=== PATIENT | male | born 1990 | race Caucasian/White ===

== ENCOUNTER 2019-09-25 23:14 | Emergency (ER) | payer SELFPAY ==
[~2019-09-25] VITALS: Ht 185.4 cm; Wt 110.7 kg
[2019-09-25] MEDS ORDERED: OLANZAPINE 10 MG VIAL IM ONE (23:48)
[2019-09-26] MEDS ORDERED: OLANZAPINE 10 MG VIAL IM ONE
--- NOTE | 2019-09-26 00:20 | NUR ---
[facility]IB EMS AND [employer] C/O AGITATION AND COMBATIVE PER EMS REPORT. VERSED 5MG IM, TASER PRONG ON THE LEFT HAND AND LUQ, PT RECEIVED CALM AND SEDATED TO ER BED 12 VSS
--- NOTE | 2019-09-26 02:26 | NUR ---
PT REMAINS ASLEEP, EASILY AROUSABLE, NO ACUTE DISTRESS NOTED, RESP EVEN AND UNLABORED. WHEN AROUSED PT VERY RESTLESS, THRASHING AROUND. PT REMAINS ON CARDIAC MONITORING, CONTINUOUS POX. CALL LIGHT WITHIN REACH. WILL COTINUE TO MONITOR PT CLOSELY.
[2019-09-26] MEDS ORDERED: HALOPERIDOL LACTATE INJ 5 MG/ML VIAL ONE ×2 (02:59→06:44)
[2019-09-26] MEDS ORDERED: HALOPERIDOL LACTATE INJ 5 MG/ML VIAL IM ONE ×2 (03:00→07:00)
--- NOTE | 2019-09-26 04:19 | NUR ---
PT SLEEPING IN [facility] NO SIGNS OF DISTRESS NOTED. WILL CONT TO MONITOR PT.
[2019-09-26 05:55] LABS: BASOPHILS # (AUTO) 0.1 /CMM (0.0-0.2); BASOPHILS % (AUTO) 0.5 % (0.0-2.0); EOSINOPHILS % (AUTO) 0.5 % (0.0-6.0); HEMATOCRIT 40 % (39-51); HEMOGLOBIN 13.4 g/dL (13.5-17.5); LYMPHOCYTES # (AUTO) 2.4 /CMM (0.8-4.8); MEAN CORPUSCULAR HGB CONC 34 g/dl (31.0-36.0); MEAN CORPUSCULAR VOLUME 89 fL (80-96); MONOCYTES # (AUTO) 0.8 /CMM (0.1-1.30); MONOCYTES % (AUTO) 7.4 % (2.0-12.0); NEUTROPHILS # (AUTO) 7.3 /CMM (1.8-8.9); NEUTROPHILS % (AUTO) 68.6 % (43.0-81.0); PLATELET COUNT (AUTO) 206 /CMM (150-450); RED BLOOD CELL COUNT(AUTO) 4.48 MIL/uL (4.5-6.0); WHITE BLOOD COUNT (AUTO) 10.6 K/uL (4.3-11.0)
[2019-09-26 06:02] LABS: CALCIUM, SERUM 8.4 mg/dL (8.5-10.1); CARBON DIOXIDE 29 mmol/L (21-32); CHLORIDE 106 mmol/L (98-107); CREATININE 0.8 mg/dL (0.6-1.3); GLUCOSE 106 mg/dL (74-106); POTASSIUM 3.8 mmol/L (3.5-5.1); SODIUM SERUM 143 mmol/L (136-145); UREA NITROGEN, BLOOD 16 mg/dL (7-18)
[2019-09-26] MEDS ORDERED: LIDOCAINE 2% JEL UROJET 10 ML MM ONE (06:03)
--- NOTE | 2019-09-26 06:05 | NUR ---
Gold cantu in [facility] - 09/26/19 at 0608 by SANTANA Patient discharged to home in stable condition. Written and verbal after care instructions given. Patient verbalizes understanding of instruction.
[2019-09-26 06:08] LABS: ALANINE AMINOTRANSFERASE 36 U/L (12-78); ALBUMIN 3.7 g/dL (3.4-5.0); ALKALINE PHOSPHATASE 60 U/L (46-116); ASPARTATE AMINOTRANSFERASE 34 U/L (15-37); BILIRUBIN,DIRECT 0.2 mg/dL (0.0-0.2); BILIRUBIN,TOTAL 0.6 mg/dL (0.2-1.0)
[2019-09-26 06:09] LABS: ACETAMINOPHEN < 2 ug/ml (10-30); ALCOHOL, BLOOD < 3 mg/dL (0-0); SALICYLATE 0.4 mg/dL (2.8-20.0)
[2019-09-26 06:31] LABS: APPEARANCE,URINE CLEAR (CLEAR); COLOR,URINE YELLOW (YELLOW); PH,URINE 5.5 (5.0-8.0)
[2019-09-26 06:32] LABS: BILIRUBIN,URINE SMALL (NEGATIVE); BLOOD, URINE NEGATIVE Ery/uL (NEGATIVE); KETONES,URINE TRACE (NEGATIVE); LEUKOCYTE ESTERASE ,URINE NEGATIVE (NEGATIVE); NITRITE, URINE NEGATIVE (NEGATIVE); PROTEIN,URINE 1+ mg/dl (NEGATIVE); UGLUCOSE NEGATIVE (NEGATIVE)
[2019-09-26 06:35] LABS: BACTERIA,URINE None seen /HPF (None Seen); HYALINE CASTS, URINE Few /LPF (None Seen); MUCUS,URINE Few /LPF (None Seen); RBC,URINE 0-2 /HPF (0-2); SQUAMOUS EPITHELIAL CELL,UR Few /HPF (None Seen); WBC,URINE 0-2 /HPF (0-3)
[2019-09-26] MEDS ORDERED: LORAZEPAM INJ 2 MG/ML VIAL ONE (06:45)
[2019-09-26] MEDS ORDERED: LORAZEPAM INJ 2 MG/ML VIAL IM ONE (07:00)
--- NOTE | 2019-09-26 12:50 | NUR ---
pt awake, provided w/ meal tray. malay speaking. ambulatory to bathroom w/ steady gait.
[2019-09-26 13:02] VITALS: BP 135/82
--- NOTE | 2019-09-26 14:10 | NUR ---
pt6 provided w/ new shirt. states wants to leave. ambulatory w/ steady gait. pt refused to sign homeless waiver and aci. medically cleared for discharge.
== END 2019-09-26 06:05 | disposition home or self-care (01) ==
LOC: ER 23:14
DX: F28 Other psychotic disorder not due to a substance or known physiological condition (principal)
CPT/HCPCS: 36415; 80048; 80076; 80305; 80307; 80329; 81001; 85025; 96372 ×3; 99285; G0480; J1630 ×2; J2060; J3490 ×2; 81000-TC